=== PATIENT | female | born 1970 | race Caucasian/White ===

== ENCOUNTER 2018-04-18 09:38 | Day surgery (SDC) | payer MEDICAID ==
[2018-04-14 14:26] LABS: BASOPHILS # (AUTO) 0.1 X10'3 (0-0.2); BASOPHILS % (AUTO) 0.7 % (0-1); EOSINOPHILS # (AUTO) 0.2 X10'3 (0-0.9); EOSINOPHILS % (AUTO) 1.9 % (0-6); HEMATOCRIT 43.7 % (35.0-45.0); HEMOGLOBIN 14.8 g/dl (12.0-16.0); LYMPHOCYTES # (AUTO) 2.6 X10'3 (1.1-4.8); MEAN CORPUSCULAR HGB CONC 33.8 % (33.0-36.5); MEAN CORPUSCULAR VOLUME 100.5 FL (78-98); MEAN PLATELET VOLUME 8.1 FL (7.4-10.4); MONOCYTES # (AUTO) 0.5 X10'3 (0-0.9); MONOCYTES % (AUTO) 5.1 % (2-12); NEUTROPHILS # (AUTO) 6.3 X10'3 (1.8-7.7); NEUTROPHILS % (AUTO) 65.3 % (42-75); PLATELET COUNT 184 X10'3 (140-440); RED BLOOD COUNT 4.35 X10'6 (4.20-5.60); RED CELL DISTRIBUTION WIDTH 14.7 % (11.5-14.5); WHITE BLOOD COUNT 9.7 X10'3 (4.5-11.0)
[2018-04-14 14:40] LABS: INR 0.9 INR; PARTIAL THROMBOPLASTIN TIME 23 SECONDS (22-32); PROTHROMBIN TIME 9.6 SECONDS (9.0-12.0)
[2018-04-14 14:53] LABS: ALANINE AMINOTRANSFERASE 73 U/L (12-78); ALBUMIN 3.7 G/DL (3.4-5.0); ALKALINE PHOSPHATASE 102 IU/L (46-116); ANION GAP 10 (8-16); ASPARTATE AMINO TRANSFERASE 57 U/L (10-37); BILIRUBIN,TOTAL 1.6 MG/DL (0.1-1.0); BLOOD UREA NITROGEN 19 MG/DL (7-18); BUN/CREATININE RATIO 21.6 (6.6-38.0); CHLORIDE 103 MMOL/L (99-107); CREATININE 0.88 MG/DL (0.40-0.90); GLUCOSE 107 MG/DL (70-104); POTASSIUM 3.9 MMOL/L (3.5-5.1); SODIUM 141 MMOL/L (135-145); TOTAL PROTEIN 7.3 G/DL (6.4-8.2); eGFR 68 ML/MIN
[~2018-04-18] VITALS: Ht 152.4 cm; Wt 85.5 kg
[2018-04-18] VITALS (12 sets, daily range): BP systolic 118–171; BP diastolic 72–99
[2018-04-18] MEDS ORDERED: nitroGLYCERIN 0.4mg SUBLingual tab SL PRN (09:55)
[2018-04-18] MEDS ORDERED: diphenhydrAMINE 25mg capsule PO PRN (09:55)
[2018-04-18] MEDS ORDERED: LORazepam 0.5 MG tablet PO PRN (09:55)
[2018-04-18] MEDS ORDERED: normal saline 1000ml 1,000 ML IV SCH ×2 (09:55→13:25)
[2018-04-18] MEDS ORDERED: TIZA2TAB4 PO (11:34)
[2018-04-18] MEDS ORDERED: BUDE10.22 INH (11:34)
[2018-04-18] MEDS ORDERED: IBUP-1985 PO (11:34)
[2018-04-18] MEDS ORDERED: LORA10TA61 PO (11:34)
[2018-04-18] MEDS ORDERED: OMEP20CA10 PO (11:34)
[2018-04-18] MEDS ORDERED: ALBU18HF2 INH (11:34)
[2018-04-18] MEDS ORDERED: BACL20TA PO (11:34)
[2018-04-18] MEDS ORDERED: GABA-532 PO (11:34)
[2018-04-18] MEDS ORDERED: MONT10TA21 PO (11:34)
[2018-04-18] MEDS ORDERED: LIDOcaine 1% (10mg/ml) 2ml vial ONE (11:54)
[2018-04-18] MEDS ORDERED: midazolam 2 mg/2 ml injection ONE (12:12)
[2018-04-18] MEDS ORDERED: fentaNYL/PF 50MCG/1 ML 2ML syringe ONE (12:12)
[2018-04-18] MEDS ORDERED: iohexol 350MG/ML 100ml bottle IV ONE (12:12)
[2018-04-18] MEDS ORDERED: iohexol 350 MG/ML 50ML vial IV ONE (12:12)
[2018-04-18] MEDS ORDERED: LIDOcaine 1% (10mg/ml)w/preservative injection 20ml MDV ONE (12:12)
[2018-04-18] MEDS ORDERED: heparin 1,000 UNITS/NS 500ml 500 ML ONE ×2 (12:13)
[2018-04-18] MEDS ORDERED: proCHLORperazine 10 MG/2 ml inj IV PRN (13:25)
[2018-04-18] MEDS ORDERED: HYDROcodone/acetaminophen 10/325mg tab PO PRN (13:25)
[2018-04-18] MEDS ORDERED: ondansetron/PF 4mg/2ml inj IV PRN (13:25)
[2018-04-18] MEDS ORDERED: OXAZEpam 15mg capsule PO PRN (13:25)
[2018-04-18] MEDS ORDERED: HYDROcodone/acetaminophen 5mg/325mg tablet PO PRN (13:25)
== END 2018-04-18 18:45 | disposition home or self-care (01) ==
LOC: SSTAY O 09:38
PROVIDERS: ATTEND Internal Medicine Cardiovascular Disease
DX: I25.10 Atherosclerotic heart disease of native coronary artery without angina pectoris (principal); J44.9 Chronic obstructive pulmonary disease, unspecified; G89.29 Other chronic pain; F17.210 Nicotine dependence, cigarettes, uncomplicated; K21.9 Gastro-esophageal reflux disease without esophagitis; Z72.89 Other problems related to lifestyle; Z79.1 Long term (current) use of non-steroidal anti-inflammatories (NSAID); Z79.891 Long term (current) use of opiate analgesic; Z79.899 Other long term (current) drug therapy; Z98.890 Other specified postprocedural states; Z82.49 Family history of ischemic heart disease and other diseases of the circulatory system; Z83.3 Family history of diabetes mellitus
CPT/HCPCS: 36415; 71046; 80053; 85025; 85610; 85730; 93005; 93458; 99152; 99153; A6257; J1644; J2001; J2250; J3010; J3490; J7030; Q0163; Q9967; A4620; C1760; C1769